=== PATIENT | male | born 1950 | race Caucasian/White ===

== ENCOUNTER → 2017-08-21 | Outpatient (CLI) | payer OTHER ==
[~2017-08-21] MED LIST: ALLO300T2 PO; ASPCH81 PO; CLB/200 PO; CLR10 PO; METO-452 PO; SIMV20TA2 PO; TRIA37.5 PO; ZNTT/150 PO
[2017-08-21 10:19] LABS: HEMATOCRIT 49.3 % (42-52); MEAN CELL VOLUME 93.5 fL (80-100); MEAN CORPUSCULAR HEMOGLOBIN 31.5 pg (25-34); MEAN CORPUSCULAR HGB CONC 33.7 g/dl (32-36); MEAN PLATELET VOLUME 9.8 fL (7.4-10.4); PLATELET COUNT 244 K/uL (130-400); RED BLOOD COUNT 5.27 M/uL (4.7-6.1)
[2017-08-21 10:52] LABS: URIC ACID 4.8 mg/dl (2.6-7.2)
== END | disposition home or self-care (01) ==
LOC: C.LAB1850 09:03
PROVIDERS: ATTEND Internal Medicine Rheumatology
DX: M10.9 Gout, unspecified (principal)

== ENCOUNTER → 2018-01-25 | Outpatient (CLI) | payer OTHER ==
[~2018-01-25] MED LIST changes: +RANI150T85 PO; -ZNTT/150 PO
[2018-01-25 12:49] LABS: HEMOGLOBIN A1C 5.5 % (4.5-5.6)
[2018-01-25 13:19] LABS: ALBUMIN 3.6 gm/dl (3.4-5.0); ALT/SGPT 24 U/L (12-78); AST/SGOT 16 U/L (15-37); BLOOD UREA NITROGEN 23 mg/dl (7-18); CALCIUM 9.1 mg/dl (8.5-10.1); CARBON DIOXIDE 26 mmol/L (21-32); CREATININE 1.29 mg/dl (0.60-1.40); GLUCOSE 89 mg/dl (70-99); SODIUM 134 mmol/L (136-145)
[2018-01-25 13:30] LABS: ALKALINE PHOSPHATASE 90 U/L (45-117); CHOLESTEROL 129 mg/dl (0-200); LDL CHOLESTEROL CALCULATED 57 mg/dl; TOTAL PROTEIN 7.8 gm/dl (6.4-8.2)
== END | disposition home or self-care (01) ==
LOC: C.LABPVFM 11:00
PROVIDERS: ATTEND Family Medicine
DX: M10.9 Gout, unspecified (principal)